=== PATIENT | male | born 1990 | race American Indian/Alaskan Native ===

== ENCOUNTER 2020-01-15 17:49 | Emergency (ER) | payer SELFPAY ==
[2020-01-15] MEDS ORDERED: LIDOCAINE (1%) 10 MG/1 ML VIAL 20 ML MDV INFILTRATI ONE (18:12)
[2020-01-15] MEDS ORDERED: KETOROLAC 30 MG/1 ML INJ IV ONE (18:12)
[2020-01-15] MEDS ORDERED: HYDROmorphone 1 MG/1 ML INJ IV ONE (18:12)
[2020-01-15] MEDS ORDERED: KETOROLAC 30 MG/1 ML INJ ONE (18:15)
[2020-01-15] MEDS ORDERED: HYDROmorphone 1 MG/1 ML INJ ONE (18:15)
--- NOTE | 2020-01-15 18:28 | XRay Report ---
RIGHT SHOULDER 2 VIEW(S) INDICATION / CLINICAL INFORMATION: possible dislocated shoulder COMPARISON: None available. FINDINGS: BONES / JOINT(S): Anteroinferior shoulder dislocation with possible Hill-Sachs deformity. No definite osseous Bankart. No significant arthritis. SOFT TISSUES: Mild shoulder edema. ADDITIONAL FINDINGS: None. IMPRESSION: 1. Anteroinferior glenohumeral dislocation with possible Hill-Sachs deformity. No osseous Bankart vis ualized. Recommend further evaluation as warranted. Signer Name: Eamon Viveros MD Signed: 01/15/2020 6:24 PM Workstation Name: [id number]
--- NOTE | 2020-01-15 18:40 | Emergency Department Report ---
ED Extremity Problem HPI - General Chief complaint: Shoulder Injury Stated complaint: SHOULDER PAIN Time Seen by Provider: 01/15/20 18:12 Source: patient Mode of arrival: Wheelchair Limitations: No Limitations - History of Present Illness Initial comments: Patient is a 29-year-old F [place] male who has had right shoulder dislocations previously who is complaining of right shoulder dislocation. Patient states he was cleaning a pool when this occurred. Patient states pain is a 10 out of 10 in severity. States the pain is slightly worse than his normal shoulder dislocations. Patient denies any other issues at this time. Severity scale (0 -10): 0 - Related Data Previous Rx's Medication Instructions Recorded Last Taken Type Ketorolac [Toradol] 10 mg PO Q6H PRN #12 tablet 01/15/20 Unknown Rx methOCARBAMOL [Robaxin TAB] 500 mg PO Q6H PRN #14 tablet 01/15/20 Unknown Rx traMADoL [Ultram] 50 mg PO Q6HR PRN #12 tablet 01/15/20 Unknown Rx Allergies Allergy/AdvReac Type Severity Reaction Status Date / Time No Known Allergies Allergy Unverified 01/15/20 17:53 ED Review of Systems ROS: Stated complaint: SHOULDER PAIN Other details as noted in HPI Comment: All other systems reviewed and negative ED Past Medical Hx - Past Medical History Previous Medical History?: No - Surgical History Past Surgical History?: No - Medications Home Medications: Home Medications Medication Instructions Recorded Confirmed Last Taken Type Ketorolac [Toradol] 10 mg PO Q6H PRN #12 tablet 01/15/20 Unknown Rx methOCARBAMOL [Robaxin TAB] 500 mg PO Q6H PRN #14 tablet 01/15/20 Unknown Rx traMADoL [Ultram] 50 mg PO Q6HR PRN #12 tablet 01/15/20 Unknown Rx ED Physical Exam - General Limitations: No Limitations General appearance: alert, in no apparent distress - Head Head exam: Present: atraumatic, normocephalic - Eye Eye exam: Present: normal appearance - ENT ENT exam: Present: mucous membranes moist - Neck Neck exam: Present: normal inspection - Respiratory Respiratory exam: Present: normal lung sounds bilaterally. Absent: respiratory distress, wheezes, rales - Cardiovascular Cardiovascular Exam: Present: regular rate, normal rhythm. Absent: systolic murmur, diastolic murmur, rubs, gallop - GI/Abdominal GI/Abdominal exam: Present: soft, normal bowel sounds - Rectal Rectal exam: Present: deferred - Extremities Exam Extremities exam: Present: normal inspection, other (Patient with tenderness palpation to the right shoulder with a deltoid deformity. Patient has decreased range of motion secondary to pain.) - Back Exam Back exam: Present: normal inspection - Neurological Exam Neurological exam: Present: alert, oriented X3 - Psychiatric Psychiatric exam: Present: normal affect, normal mood - Skin Skin exam: Present: warm, dry, intact, normal color. Absent: rash ED Course Vital Signs 01/15/20 01/15/20 01/15/20 17:55 18:26 18:27 Temperature 98.0 F Pulse Rate 71 63 Respiratory 20 16 18 Rate Blood Pressure 144/90 Blood Pressure 138/86 [Left] O2 Sat by Pulse 100 100 Oximetry - Orthopedic Joint Reduction Joint #1 Consent Obtained: verbal consent Time Out Performed: Yes Side: right Joint Reduction Location: shoulder Local Anesthetic Used: Lidocaine 1% Shoulder Technique Used (if applicable): Milarmand Post-Reduction Neuro Exam: intact Post-Reduction Vascular Exam: intact Post Reduction X-Ray Results: reduced ED Medical Decision Making - Radiology Data RIGHT SHOULDER 2 VIEW(S) INDICATION / CLINICAL INFORMATION: possible dislocated shoulder COMPARISON: None available. FINDINGS: BONES / JOINT(S): Anteroinferior shoulder dislocation with possible Hill-Sachs deformity. No definite osseous Bankart. No significant arthritis. SOFT TISSUES: Mild shoulder edema. ADDITIONAL FINDINGS: None. IMPRESSION: 1. Anteroinferior glenohumeral dislocation with possible Hill-Sachs deformity. No osseous Bankart visualized. Recommend further evaluation as warranted. Signer Name: Eamon Viveros MD Signed: 01/15/2020 6:24 PM Workstation Name: [id number] Transcribed By: Dictated By: EAMON VIVEROS III Electronically Authenticated By: EAMON VIVEROS III Signed Date/Time: 01/15/20 182 Post reduction film is within normal limits - Medical Decision Making Patient is a 29-year-old F [place]ian male who is presenting with a shoulder dislocation. Shoulder was reduced by me. Critical care attestation.: If time is entered above; I have spent that time in minutes in the direct care of this critically ill patient, excluding procedure time. ED Disposition Clinical Impression: Anterior shoulder pain Disposition: DC-01 TO HOME OR SELFCARE Is pt being admited?: No Does the pt Need Aspirin: No Condition: Stable Instructions: Shoulder Dislocation (ED) Prescriptions: methOCARBAMOL [Robaxin TAB] 500 mg PO Q6H PRN #14 tablet PRN Reason: Muscle Spasm Ketorolac [Toradol] 10 mg PO Q6H PRN #12 tablet PRN Reason: Pain traMADoL [Ultram] 50 mg PO Q6HR PRN #12 tablet PRN Reason: Pain Referrals: EAMON ORELLANA MD [Staff Physician] - 3-5 Days Time of Disposition: 19:28
--- NOTE | 2020-01-15 19:27 | XRay Report ---
RIGHT SHOULDER SINGLE VIEW 6:54 PM INDICATION: post reduction film. COMPARISON: Earlier today FINDINGS: Previously seen anterior-inferior right shoulder dislocation has been reduced. No osseous Bankart fra cture is seen. Hill-Sachs impaction fracture is seen at the humeral head. IMPRESSION: 1. Satisfactory postreduction appearance. Signer Name: Ernesto Leroy MD Signed: 01/15/2020 7:22 PM Workstation Name: [id number]
[2020-01-15 20:06] VITALS: BP 147/95
== END 2020-01-15 19:45 | disposition home or self-care (01) ==
LOC: ED 17:49
DX: M25.511 Pain in right shoulder (principal)
CPT/HCPCS: 23650; 73020; 73030; 96374; 96375; 99283; J1170; J1885